=== PATIENT | female | born 1975 | race Caucasian/White ===

== ENCOUNTER 2017-04-21 05:11 | Inpatient (IN) | payer OTHER ==
[~2017-04-21] VITALS: Ht 165.1 cm; Wt 100.5 kg
[~2017-04-21 05:11] MED LIST: METH500T98 PO; MULT-658 PO; OMEP40CA6 PO; OXYC5SOL8 PO
[2017-04-21] MEDS ORDERED: SODIUM CHLORIDE 0.9% 1,000 ML IV ONE (05:14)
[2017-04-21] MEDS ORDERED: HYDROmorphone 1 MG/ML, 1ML ONE (05:28)
[2017-04-21] MEDS ORDERED: SODIUM CHLORIDE FLUSH 10ML SYR IVF ONE (05:30)
[2017-04-21] MEDS ORDERED: HYDROmorphone 1 MG/ML, 1ML IV PRN ×3 (05:30→13:30)
[2017-04-21 07:50] VITALS: BP 120/67
[2017-04-21] MEDS: LACTATED RINGERS 1,000 ML IV SCH ×2 (08:28→16:24)
[2017-04-21] MEDS: HYDROmorphone 1 MG/ML, 1ML IV PRN ×2 (10:15→12:18)
[2017-04-21 12:56] VITALS: BP 118/76
[2017-04-21] MEDS: ONDANSETRON 2MG/ML, 2ML IV PRN ×3 (14:08→22:46)
[2017-04-21] MEDS: MORPHINE SULFATE 4 MG/ML, 1ML IVPush PRN ×5 (14:22→23:15)
[2017-04-21] MEDS: OMEPRAZOLE 20 MG CAPSULE.DR PO SCH (16:24)
[2017-04-21 20:45] VITALS: BP 123/78
[2017-04-22] MEDS: MORPHINE SULFATE 4 MG/ML, 1ML IVPush PRN ×5 (01:51→12:14)
[2017-04-22] MEDS: LACTATED RINGERS 1,000 ML IV SCH ×2 (01:52→17:42)
[2017-04-22 03:30] VITALS: BP 107/68
[2017-04-22] MEDS: ONDANSETRON 2MG/ML, 2ML IV PRN ×3 (03:32→12:14)
[2017-04-22 08:09] VITALS: BP 110/70
[2017-04-22] MEDS ORDERED: BUPIVACAINE/PF 0.5% ONE (10:40)
[2017-04-22] MEDS ORDERED: EPINEPHRINE 1 MG/ML, 1ML ONE (10:40)
[2017-04-22] MEDS ORDERED: LACTATED RINGERS 1,000 ML IV SCH (11:49)
[2017-04-22] MEDS ORDERED: morphine SULFATE 10 MG/ML, 1ML ONE (12:00)
[2017-04-22] MEDS ORDERED: FENTANYL PF 100 MCG/2ML ONE ×4 (12:36→14:55)
[2017-04-22] MEDS ORDERED: MIDAZOLAM 1 MG/ML, 2ML ONE (12:36)
[2017-04-22] MEDS ORDERED: DEXAMETHASONE 4 MG/ML, 1ML ONE (12:47)
[2017-04-22] MEDS ORDERED: SUCCINYLCHOLINE 20 MG/ML, 10ML ONE (12:47)
[2017-04-22] MEDS ORDERED: CEFOTETAN 2 GM ONE (12:47)
[2017-04-22] MEDS ORDERED: ONDANSETRON 2MG/ML, 2ML ONE (12:47)
[2017-04-22] MEDS ORDERED: NEOSTIGMINE 1 MG/ML, 10ML ONE (12:47)
[2017-04-22] MEDS ORDERED: PROPOFOL 10 MG/ML, 50ML ONE (12:47)
[2017-04-22] MEDS ORDERED: GLYCOPYRROLATE 0.2MG/1ML ONE (12:47)
[2017-04-22] MEDS ORDERED: ROCURONIUM 10 MG/ML ONE (12:47)
[2017-04-22] MEDS ORDERED: ONDANSETRON 2MG/ML, 2ML IVPush PRN (13:30)
[2017-04-22] MEDS ORDERED: HYDROmorphone 1 MG/ML, 1ML IV PRN (13:30)
[2017-04-22] MEDS ORDERED: hydrALAzine 20 MG/ML, 1ML IV PRN (13:30)
[2017-04-22] MEDS ORDERED: ACETAMINOPHEN 325 MG TABLET PO PRN (13:30)
[2017-04-22] MEDS ORDERED: EPHEDRINE 50 MG/ML, 1ML IVPush PRN (13:30)
[2017-04-22] MEDS ORDERED: HYDROcodone/APAP 7.5-325MG/15ML UDC PO PRN (13:30)
[2017-04-22] MEDS ORDERED: LABETALOL 5MG/ML, 20ML IV PRN (13:30)
[2017-04-22] MEDS ORDERED: PROMETHAZINE 25 MG/ML, 1ML IV PRN (13:30)
[2017-04-22] MEDS ORDERED: OXYcodone 5 MG/5 ML ORAL.SOL UDC PO PRN (13:30)
[2017-04-22] MEDS ORDERED: MEPERIDINE/PF 25MG/0.5ML IVPush PRN (13:30)
[2017-04-22] MEDS ORDERED: MIDAZOLAM 1 MG/ML, 5ML IV PRN (13:30)
[2017-04-22] MEDS ORDERED: HYDROmorphone 2 MG/ML, 1ML ONE (14:25)
[2017-04-22] MEDS: FENTANYL PF 100 MCG/2ML IV PRN ×4 (14:26→15:22)
[2017-04-22] MEDS ORDERED: MEPERIDINE/PF 25MG/0.5ML ONE (14:55)
[2017-04-22 16:40] VITALS: BP 107/72
[2017-04-22 17:34] VITALS: BP 114/79
[2017-04-22] MEDS ORDERED: LORazepam 2 MG/ML, 1ML IVPush PRN (19:00)
[2017-04-22 19:43] VITALS: BP 111/76
[2017-04-22 23:11] VITALS: BP 109/79
[2017-04-23] MEDS: LACTATED RINGERS 1,000 ML IV SCH ×3 (01:41→17:33)
[2017-04-23 03:11] VITALS: BP 105/66
[2017-04-23] MEDS: OMEPRAZOLE 20 MG CAPSULE.DR PO SCH (07:30)
[2017-04-23 07:39] VITALS: BP 109/73
[2017-04-23] MEDS: PANTOPRAZOLE 40 MG IV IVPush SCH (08:00)
[2017-04-23 13:36] VITALS: BP 103/69
[2017-04-23 20:00] VITALS: BP 106/63
[2017-04-24] MEDS: LACTATED RINGERS 1,000 ML IV SCH ×3 (00:50→15:57)
[2017-04-24 02:00] VITALS: BP 113/75
[2017-04-24 06:37] VITALS: BP 110/70
[2017-04-24] MEDS: OMEPRAZOLE 20 MG CAPSULE.DR PO SCH (07:30)
[2017-04-24] MEDS: PANTOPRAZOLE 40 MG IV IVPush SCH (08:16)
[2017-04-24] MEDS: ONDANSETRON 2MG/ML, 2ML IV PRN (08:26)
[2017-04-24] MEDS: HYDROcodone/APAP 7.5-325MG/15ML UDC PO PRN ×5 (08:28→22:32)
[2017-04-24 13:22] VITALS: BP 113/63
[2017-04-24] MEDS: morphine SULFATE 10 MG/ML, 1ML IVPush PRN ×2 (15:56→20:14)
[2017-04-24 18:31] VITALS: BP 103/70
[2017-04-25] MEDS: LACTATED RINGERS 1,000 ML IV SCH ×3 (00:03→17:36)
[2017-04-25 02:55] VITALS: BP 101/69
[2017-04-25] MEDS: HYDROcodone/APAP 7.5-325MG/15ML UDC PO PRN ×5 (04:09→20:47)
[2017-04-25] MEDS: OMEPRAZOLE 20 MG CAPSULE.DR PO SCH (07:30)
[2017-04-25 08:02] VITALS: BP 118/75
[2017-04-25] MEDS: PANTOPRAZOLE 40 MG IV IVPush SCH (08:16)
[2017-04-25 12:54] VITALS: BP 107/72
[2017-04-25] MEDS: morphine SULFATE 10 MG/ML, 1ML IVPush PRN ×2 (18:34→21:33)
[2017-04-25 19:23] VITALS: BP 104/68
[2017-04-26] MEDS: LACTATED RINGERS 1,000 ML IV SCH ×3 (01:09→16:21)
[2017-04-26] MEDS: HYDROcodone/APAP 7.5-325MG/15ML UDC PO PRN ×5 (01:14→20:54)
[2017-04-26 03:35] VITALS: BP 103/68
[2017-04-26] MEDS ORDERED: ONDANSETRON ODT 4 MG PO PRN (07:00)
[2017-04-26] MEDS: PANTOPRAZOLE 40 MG IV IVPush SCH (07:09)
[2017-04-26 07:19] VITALS: BP 108/68
[2017-04-26] MEDS: OMEPRAZOLE 20 MG CAPSULE.DR PO SCH (07:31)
[2017-04-26 14:57] VITALS: BP 138/81
[2017-04-26 20:00] VITALS: BP 107/71
[2017-04-27] MEDS: HYDROcodone/APAP 7.5-325MG/15ML UDC PO PRN ×3 (01:15→11:22)
[2017-04-27] MEDS: LACTATED RINGERS 1,000 ML IV SCH ×2 (01:30→09:30)
[2017-04-27 04:05] VITALS: BP 116/77
[2017-04-27 06:48] VITALS: BP 125/75
[2017-04-27] MEDS: OMEPRAZOLE 20 MG CAPSULE.DR PO SCH (08:57)
[2017-04-27] MEDS: PANTOPRAZOLE 40 MG IV IVPush SCH ×2 (08:57→09:00)
[2017-04-27 12:50] VITALS: BP 114/69
[2017-04-27] MEDS ORDERED: HYDR15SO3 PO (13:30)
[2017-04-27 13:47] VITALS: BP 129/84
== END 2017-04-27 14:25 | disposition home or self-care (01) | DRG 354 ==
LOC: ED 05:45 → EDIP 06:00 → 4NOR 06:17
PROVIDERS: ADMIT Colon & Rectal Surgery; ATTEND Colon & Rectal Surgery
PROC: 0WQF4ZZ Repair Abdominal Wall, Percutaneous Endoscopic Approach (ICD-10-PCS; principal; 2017-04-22 13:00)
DX: K46.0 Unspecified abdominal hernia with obstruction, without gangrene (principal); K56.5 Intestinal adhesions [bands] with obstruction (postinfection); K21.9 Gastro-esophageal reflux disease without esophagitis; E66.9 Obesity, unspecified; Z87.891 Personal history of nicotine dependence; Z98.84 Bariatric surgery status; Z68.36 Body mass index [BMI] 36.0-36.9, adult
CPT/HCPCS: 74020; 96374; J0171; J1100; J1170; J2175; J2250; J2270; J2405; J2704; J2710; J3010; J3490; Q0162; C9113; J0330; J7030; J7120; S0074